=== PATIENT | female | born 1995 | race Two or more races ===

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

== ENCOUNTER 2017-05-06 20:42 | Emergency (ER) | payer OTHER ==
[~2017-05-06] VITALS: Ht 165.1 cm; Wt 101.6 kg
[~2017-05-06 20:42] MED LIST changes: +NAPROSYN500 MG PO
[2017-05-07] MEDS ORDERED: PERCOCET 5/31 TABLET PO (01:00)
[2017-05-07 01:06] VITALS: BP 103/70
== END 2017-05-07 01:11 | disposition home or self-care (01) ==
LOC: EXP 20:42 → EME 20:42 → EXP 05-07 01:11
PROC: 2W3QX1Z Immobilization of Right Lower Leg using Splint (ICD-10-PCS; principal; 2017-05-06)
DX: S92.354A Nondisplaced fracture of fifth metatarsal bone, right foot, initial encounter for closed fracture (principal); W18.40XA Slipping, tripping and stumbling without falling, unspecified, initial encounter; Z88.2 Allergy status to sulfonamides
CPT/HCPCS: 73610; 73630; 99281; 99283

== ENCOUNTER 2017-08-02 05:26 | Emergency (ER) | payer OTHER ==
[~2017-08-02] VITALS: Ht 165.1 cm; Wt 101.6 kg
[2017-08-02 05:28] VITALS: BP 124/90
[2017-08-02] MEDS ORDERED: NAPROSYN500 MG PO (06:21)
== END 2017-08-02 06:38 | disposition home or self-care (01) ==
LOC: EME 05:26
PROC: 0HQ0XZZ Repair Scalp Skin, External Approach (ICD-10-PCS; principal; 2017-08-02)
DX: S00.03XA Contusion of scalp, initial encounter (principal); S01.01XA Laceration without foreign body of scalp, initial encounter; F10.99 Alcohol use, unspecified with unspecified alcohol-induced disorder; R42 Dizziness and giddiness; F17.200 Nicotine dependence, unspecified, uncomplicated; V49.9XXA Car occupant (driver) (passenger) injured in unspecified traffic accident, initial encounter
CPT/HCPCS: 70450; 72125; 99281; 99284